=== PATIENT | male | born 1940 | race Caucasian/White ===

== ENCOUNTER → 2016-07-28 | Outpatient (CLI) | payer OTHER ==
[~2016-07-28] MED LIST: ALLO300T2 PO; AMLO-110 PO; ASPCH81X PO; CMD5 PO; COLC0.6T54 PO; DUTA0.5C PO; FURO20TA PO; LBT/100 PO; LVNIS100 SQ; SILO8CAP PO; SOLI5TAB2 PO; WARF2.5T8 PO
--- NOTE | 2016-07-28 10:38 | DIAGNOSTIC IMAGING REPORT ---
KUB CLINICAL HISTORY: N40.1 Benign prostatic hypertrophy with urinary [id number] COMPARISON STUDY: No previous studies for comparison. FINDINGS: There is no pathologic bowel dilatation. Small opacities project over each kidney, suspicious for renal calculi. None exceed 3 mm in diameter. There are prominent striations within the gluteal musculature. These are slightly more pronounced than on the prior 2013 study. IMPRESSION: Suspected bilateral nephrolithiasis. No evidence of pathologic bowel dilatation. Electronically signed by: Jonah Pisano M.D. 07/28/2016 10:36 AM Dictated Date/Time: 07/28/2016 10:34 AM
[2016-07-28 13:20] LABS: BLOOD UREA NITROGEN 15 mg/dl (7-18); BUN/CREATININE RATIO 13.7 (10-20)
[2016-07-28 13:24] LABS: PROSTATE SPECIFIC ANTIGEN 0.845 ng/ml (0.000-4.000)
== END | disposition home or self-care (01) ==
LOC: C.RAD 09:58
PROVIDERS: ATTEND Urology
DX: N40.1 Benign prostatic hyperplasia with lower urinary tract symptoms (principal); N39.41 Urge incontinence; N20.0 Calculus of kidney